=== PATIENT | male | born 1970 | race African-American/Black ===

== ENCOUNTER 2024-07-11 16:09 | Emergency (ER) | payer MEDICAID, OTHER ==
[~2024-07-11] VITALS: Ht 185.4 cm; Wt 90.0 kg
[2024-07-11 16:10] VITALS: O2SAT 99
[2024-07-11 22:46] VITALS: BP 148/80; PULSE 88; RESP 16; TEMP 36.61404; O2SAT 100
== END 2024-07-11 22:47 | disposition home or self-care (01) ==
LOC: ER 16:09
DX: F10.129 Alcohol abuse with intoxication, unspecified (principal); Y90.9 Presence of alcohol in blood, level not specified
CPT/HCPCS: 70450; 99284; Z7610 ×2

== ENCOUNTER 2024-09-18 00:49 | Emergency (ER) | payer MEDICAID, OTHER ==
[~2024-09-18] VITALS: Ht 182.9 cm; Wt 114.0 kg
[2024-09-18 01:08] VITALS: O2SAT 98
[2024-09-18 02:10] LABS: CHLORIDE 100 mEq/L (98-107); SODIUM 135 mEq/L (136-145)
[2024-09-18 02:11] LABS: CARBON DIOXIDE 20 mEq/L (21-32)
[2024-09-18 02:16] LABS: CREATININE 1.1 mg/dL (0.6-1.3); ETHANOL BLOOD 231 mg/dL (<10); GLUCOSE 84 mg/dL (70-105); UREA NITROGEN BLOOD 9 mg/dL (9-23)
[2024-09-18 02:18] LABS: AMMONIA < 17 uMol/L (<32)
[2024-09-18 02:36] LABS: BASOPHILS % 0.8 % (0.0-2.0); DIFFERENTIAL COMMENT 0; HEMATOCRIT. 42.6 % (42.0-52.0); LYMPHOCYTES % 26.2 % (20.0-50.0); MEAN CORPUSCULAR HEMOGLOBIN 29.9 pg (28.0-32.0); MEAN CORPUSCULAR HGB CONC 28.3 g/dL (31.0-37.0); MEAN CORPUSCULAR VOLUME 105.7 fL (80.0-94.0); MEAN PLATELET VOLUME 6.9 fl (7.4-10.4); MONOCYTES % 8.7 % (2.0-8.0); NEUTROPHILS % 52.3 % (40.0-76.0); PLATELET 363 x1000/uL (130-400); RED BLOOD CELL COUNT 4.03 mill/uL (4.7-6.1); RED CELL DISTRIBUTION WIDTH 15.3 % (11.6-14.6); WHITE BLOOD COUNT 5.1 x1000/uL (4.5-11.0)
[2024-09-18] MEDS ORDERED: IBUP-2029 MT (03:44)
[2024-09-18] MEDS ORDERED: BACL-141 MT (03:44)
[2024-09-18] MEDS: DEXAMETHASONE 10 MG/ML VIAL IM NR (04:10)
[2024-09-18] MEDS: IBUPROFEN 600MG TABLET PO NR (04:10)
[2024-09-18 05:45] VITALS: BP 138/76; PULSE 96; RESP 18; TEMP 36.6; O2SAT 98
== END 2024-09-18 06:09 | disposition home or self-care (01) ==
LOC: ER 00:49
DX: F10.129 Alcohol abuse with intoxication, unspecified (principal); M47.816 Spondylosis without myelopathy or radiculopathy, lumbar region; I49.9 Cardiac arrhythmia, unspecified; R51.9 Headache, unspecified; Z00.00 Encounter for general adult medical examination without abnormal findings; Y90.7 Blood alcohol level of 200-239 mg/100 ml
CPT/HCPCS: 80048; 80320; 82140; 85025; 36415; 71045; 70450; 72131; 93005; 96372; 99285; J1100; G0480

== ENCOUNTER 2024-11-05 16:18 | Emergency (ER) | payer MEDICAID, OTHER ==
[~2024-11-05] VITALS: Ht 177.8 cm; Wt 107.0 kg
[~2024-11-05 16:18] MED LIST: BACL-141 MT; IBUP-2029 MT
[2024-11-05 16:42] VITALS: BP 120/70; PULSE 80; RESP 18; TEMP 36.8; O2SAT 97
== END 2024-11-05 20:22 | disposition home or self-care (01) ==
LOC: ER 16:18
DX: E86.0 Dehydration (principal); Z59.00 Homelessness unspecified; F10.90 Alcohol use, unspecified, uncomplicated; Y90.9 Presence of alcohol in blood, level not specified
CPT/HCPCS: 99283

== ENCOUNTER 2024-11-10 16:17 | Emergency (ER) | payer MEDICAID ==
[~2024-11-10] VITALS: Ht 175.3 cm; Wt 105.0 kg
[2024-11-10 16:23] VITALS: TEMP 36.6; O2SAT 98
[2024-11-10 20:47] LABS: BASOPHILS % 1.6 % (0.0-2.0); EOSINOPHILS % 9.9 % (0.0-5.0); HEMATOCRIT. 26.2 % (42.0-52.0); HEMOGLOBIN. 8.5 g/dL (14.0-18.0); LYMPHOCYTES % 29.1 % (20.0-50.0); MEAN CORPUSCULAR HEMOGLOBIN 27.6 pg (28.0-32.0); MEAN CORPUSCULAR HGB CONC 32.2 g/dL (31.0-37.0); MEAN CORPUSCULAR VOLUME 85.7 fL (80.0-94.0); MEAN PLATELET VOLUME 6.6 fl (7.4-10.4); MONOCYTES % 7.9 % (2.0-8.0); NEUTROPHILS % 51.5 % (40.0-76.0); PLATELET 400 x1000/uL (130-400); RED BLOOD CELL COUNT 3.06 mill/uL (4.7-6.1); WHITE BLOOD COUNT 4.1 x1000/uL (4.5-11.0)
[2024-11-10 20:50] LABS: CHLORIDE 103 mEq/L (98-107); POTASSIUM 3.9 mEq/L (3.5-5.1); SODIUM 140 mEq/L (136-145)
[2024-11-10 20:51] LABS: CARBON DIOXIDE 26 mEq/L (21-32)
[2024-11-10 20:52] LABS: CALCIUM 8.8 mg/dL (8.7-10.4)
[2024-11-10 20:56] LABS: CREATININE 1.2 mg/dL (0.6-1.3); GLUCOSE 95 mg/dL (70-105); UREA NITROGEN BLOOD 16 mg/dL (9-23)
[2024-11-10 20:57] LABS: ETHANOL BLOOD 287 mg/dL (<10)
[2024-11-10 21:37] VITALS: BP 129/86; PULSE 108; RESP 18; O2SAT 96
== END 2024-11-11 04:54 | disposition home or self-care (01) ==
LOC: ER 16:17
DX: F10.129 Alcohol abuse with intoxication, unspecified (principal); Z79.899 Other long term (current) drug therapy; Y90.9 Presence of alcohol in blood, level not specified
CPT/HCPCS: 80048; 80320; 85025; 36415; 99283; Z7610; G0480